=== PATIENT | female | born 1980 | race Caucasian/White ===

== ENCOUNTER → 2018-02-25 | Outpatient (CLI) | payer MEDICARE | LOC: RADMAMWWP 13:52 | PROVIDERS: ATTEND Family Medicine | DX: Z53.9 Procedure and treatment not carried out, unspecified reason (principal) ==

== ENCOUNTER 2018-10-18 15:03 | Inpatient (IN) | payer MEDICARE, MEDICAID ==
[2018-10-18] MEDS ORDERED: IBUPROFEN 600 MG TAB PO STA (15:37)
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
[2018-10-18] MEDS ORDERED: ZIPRASIDONE 20 MG VIAL IM STA (16:11)
[2018-10-18] MEDS ORDERED: LORazepam 2 MG/ML INJ IM STA (16:11)
[2018-10-18] MEDS ORDERED: MAGNESIUM HYDROXIDE 2,400 MG/10 ML CUP PO PRN (17:05)
[2018-10-19] MEDS: LORazepam 1 MG TAB PO PRN (06:33)
[2018-10-19 08:39] LABS: Basophils # (A) 0.1 k/uL (0-0.2); Basophils % (A) 0 %; Eosinophils # (A) 0.4 k/uL (0-0.7); Eosinophils % (A) 3 %; HCT 40.2 % (34.0-46.0); HGB 13.5 gm/dL (11.4-16.0); Lymphocytes # (A) 2.9 k/uL (1.0-4.8); Lymphocytes % (A) 20 %; MCH 32.9 pg (25.0-35.0); MCHC 33.7 g/dL (31.0-37.0); MCV 97.6 fL (80.0-100.0); Mean Platelet Volume 7.9; Monocytes # (A) 0.7 k/uL (0-1.0); Monocytes % (A) 5 %; Neutrophils # (A) 10.2 k/uL (1.3-7.7); Neutrophils % (A) 71 %; Platelet Count 372 k/uL (150-450); RBC 4.12 m/uL (3.80-5.40); RDW 14.5 % (11.5-15.5); WBC 14.5 k/uL (3.8-10.6)
[2018-10-19 08:47] LABS: ALT 9 U/L (9-52); AST 22 U/L (14-36); African American GFR (CKD) >90 (>60 ml/min/1.73 sqM); Albumin 3.7 g/dL (3.5-5.0); Alkaline Phosphatase 60 U/L (38-126); Anion Gap 8 mmol/L; Blood Urea Nitrogen 11 mg/dL (7-17); Calcium 9.2 mg/dL (8.4-10.2); Carbon Dioxide 20 mmol/L (22-30); Chloride 113 mmol/L (98-107); Cholesterol 292 mg/dL (<200); Glucose 92 mg/dL (74-99); HDL Cholesterol 33 mg/dL (40-60); LDL Cholesterol,Calculated 224 mg/dL (0-99); Potassium 3.6 mmol/L (3.5-5.1); Sodium 141 mmol/L (137-145); Total Bilirubin 0.5 mg/dL (0.2-1.3); Total Protein 6.5 g/dL (6.3-8.2); Triglycerides 175 mg/dL (<150)
[2018-10-19] MEDS: NICOTINE 14MG/24HR PATCH TRANSDERM SCH (11:05)
[2018-10-19] MEDS ORDERED: LORazepam 2 MG/ML INJ IM STA (14:07)
[2018-10-19] MEDS ORDERED: LORazepam 2 MG/ML INJ ONE (14:09)
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
[2018-10-19] MEDS: ZIPRASIDONE 20 MG VIAL IM PRN (14:35)
[2018-10-19] MEDS: TOPIRAMATE 100 MG TAB PO SCH ×2 (22:03→23:36)
[2018-10-20] MEDS: NICOTINE 14MG/24HR PATCH TRANSDERM SCH (09:54)
[2018-10-20] MEDS: TOPIRAMATE 100 MG TAB PO SCH ×2 (09:54→21:43)
[2018-10-20] MEDS: LORATADINE 10 MG TAB PO SCH (09:54)
[2018-10-20] MEDS: FAMOTIDINE 20 MG TAB PO SCH (09:54)
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
[2018-10-20 13:08] LABS: Hemoglobin A1C 5.1 % (4.0-6.0)
[2018-10-20] MEDS ORDERED: ZIPRASIDONE 20 MG VIAL IM ONE ×2 (13:26→13:31)
[2018-10-20] MEDS: ZIPRASIDONE 20 MG VIAL IM PRN (13:31)
[2018-10-20] MEDS: LORazepam 2 MG/ML INJ IM PRN (13:35)
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
[2018-10-21] MEDS: TOPIRAMATE 100 MG TAB PO SCH ×2 (09:48→20:08)
[2018-10-21] MEDS: LORATADINE 10 MG TAB PO SCH (09:48)
[2018-10-21] MEDS: FAMOTIDINE 20 MG TAB PO SCH (09:48)
[2018-10-21] MEDS: NICOTINE 14MG/24HR PATCH TRANSDERM SCH (09:48)
[2018-10-21 12:09] LABS: Serum Amphetamine Negative; Serum Barbiturates Negative; Serum Benzodiazepine Negative; Serum Cocaine Negative; Serum Methadone Negative; Serum Opiates Negative; Serum Phencyclidine Negative; Serum Propoxyphene Negative; Serum THC (Cannabis) Positive
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
[2018-10-21] MEDS: MAG HYDROX/AL HYDROX/SIMETH 30 ML CUP PO PRN (16:29)
[2018-10-21] MEDS: PREGABALIN 75 MG CAP PO SCH (20:07)
[2018-10-21] MEDS: ONDANSETRON ODT 4 MG TAB PO PRN (20:08)
[2018-10-21] MEDS: LORazepam 1 MG TAB PO PRN (20:10)
[2018-10-22] MEDS ORDERED: SCOPOLAMINE 1.5MG/72HR PATCH TRANSDERM SCH (00:45)
[2018-10-22] MEDS ORDERED: ONDANSETRON 4 MG/2 ML VIAL IM PRN (01:51)
[2018-10-22] MEDS: SODIUM CHLORIDE 0.45% 1,000 ML IV SCH ×2 (02:15→12:04)
--- NOTE | 2018-10-22 02:53 | CT ---
EXAM: CT Abdomen and Pelvis Without Intravenous Contrast CLINICAL HISTORY: ITS.REASON CT Reason: ABD pain TECHNIQUE: Axial computed tomography images of the abdomen and pelvis without intravenous contrast. CTDI is 10 mGy and DLP is 352 mGy-cm. This CT exam was performed using one or more of the following dose reduction techniques: automated exposure control, adjustment of the mA and/or kV according to patient size, and/or use of iterative reconstruction technique. COMPARISON: 08/17/2010 CT abdomen FINDINGS: Lung bases: No mass. No consolidation. ABDOMEN: Liver: Unremarkable. Gallbladder and bile ducts: Unremarkable. Pancreas: No ductal dilation. Spleen: Unremarkable. Adrenals: Unremarkable. Kidneys and ureters: No obstructing stones. No hydronephrosis. Stomach and bowel: No bowel obstruction. No bowel wall thickening. PELVIS: Appendix: No appendicitis. Bladder: No stones. Reproductive: Prominent left ovary measuring approximately 4.5 cm. Right ovary measures 2.6 cm.. ABDOMEN and PELVIS: Intraperitoneal space: Unremarkable. Bones/joints: No acute fractures. Soft tissues: Unremarkable. Vasculature: No abdominal aortic aneurysm. Lymph nodes: No enlarged lymph nodes. IMPRESSION: No acute intra-abdominal process. Prominent left ovary measuring up to 4.5 cm, if there is pain in the pelvis, correlate with ultrasound.
[2018-10-22] MEDS ORDERED: ONDANSETRON 4 MG/2 ML VIAL IVP PRN (03:03)
[2018-10-22 03:18] LABS: Basophils # (A) 0.1 k/uL (0-0.2); Basophils % (A) 1 %; Eosinophils # (A) 0.1 k/uL (0-0.7); Eosinophils % (A) 1 %; HCT 46.3 % (34.0-46.0); HGB 15.7 gm/dL (11.4-16.0); Lymphocytes # (A) 4.1 k/uL (1.0-4.8); Lymphocytes % (A) 34 %; MCH 32.9 pg (25.0-35.0); MCV 96.9 fL (80.0-100.0); Mean Platelet Volume 7.6; Monocytes # (A) 0.8 k/uL (0-1.0); Monocytes % (A) 6 %; Neutrophils # (A) 6.8 k/uL (1.3-7.7); Neutrophils % (A) 55 %; Platelet Count 402 k/uL (150-450); RBC 4.78 m/uL (3.80-5.40); RDW 14.9 % (11.5-15.5); WBC 12.3 k/uL (3.8-10.6)
[2018-10-22 03:25] LABS: ALT 16 U/L (9-52); AST 30 U/L (14-36); African American GFR (CKD) >90 (>60 ml/min/1.73 sqM); Albumin 4.9 g/dL (3.5-5.0); Alkaline Phosphatase 86 U/L (38-126); Amylase 48 U/L (30-110); Anion Gap 17 mmol/L; Blood Urea Nitrogen 14 mg/dL (7-17); Carbon Dioxide 22 mmol/L (22-30); Chloride 101 mmol/L (98-107); Glucose 116 mg/dL (74-99); Potassium 3.2 mmol/L (3.5-5.1); Sodium 140 mmol/L (137-145); Total Bilirubin 0.5 mg/dL (0.2-1.3); Total Protein 8.1 g/dL (6.3-8.2)
[2018-10-22] MEDS ORDERED: POTASSIUM CHLORIDE ER 20 MEQ TAB.ER PO STA (08:00)
[2018-10-22] MEDS: TOPIRAMATE 100 MG TAB PO SCH ×2 (08:11→21:06)
[2018-10-22] MEDS: NICOTINE 14MG/24HR PATCH TRANSDERM SCH (08:11)
[2018-10-22] MEDS: PREGABALIN 75 MG CAP PO SCH (08:11)
[2018-10-22] MEDS: FAMOTIDINE 20 MG TAB PO SCH ×2 (08:11→21:06)
[2018-10-22] MEDS: LORATADINE 10 MG TAB PO SCH (08:11)
[2018-10-22] MEDS: DULoxetine HCL 30 MG CAPSULE.DR PO SCH (09:52)
[2018-10-22] MEDS: ONDANSETRON ODT 4 MG TAB PO PRN (10:06)
[2018-10-22] MEDS ORDERED: Potassium Replacement Protocol 1 EACH MISC MISCELLANE PRN (12:04)
--- NOTE | 2018-10-22 12:12 | P.CONS ---
History of Present Illness - Reason for Consult Consult date: 10/22/18 Nausea vomiting Requesting physician: Henrik Ortiz - Chief Complaint Nausea vomiting epigastric abdominal pain - History of Present Illness 38-year-old female admitted with psychosis combative behavior not taking her psychiatric medications. Consult requested for nausea vomiting. CT abdomen and pelvis unremarkable. Patient's nausea vomiting has improved through the night. Per nursing no reports of hematemesis hematochezia or melena. White count on admission 14.5 presently 12.3. Hemoglobin 15.7. LFTs within normal limits. BUN 14. Creatinine 0.7. Lipase 27. Reports improvement in her epigastric discomfort. Tolerating clear liquids this morning. No history of gastric surgeries or peptic ulcer disease. Review of Systems Constitutional: Denies fever, chills, sweats, weight gain, or loss. HEENT: Negative for migraines, blurred vision or loss, earaches, drainage, tinnitus, oral mucosal lesions, dysphagia, or odynophagia. CARDIAC: Negative for chest pain, arrhythmias, or palpitation. RESPIRATORY: Negative for shortness of breath, hemoptysis, cough, or sputum production. GI: See HPI for pertinent findings. : Negative for hematuria, urgency, frequency, polyuria, or dysuria. GYNc: Denies possibility of . Negative vaginal discharge. MUSCULOSKELETAL: Negative for muscle aches, swelling, arthritis, and a rthralgias. NEUROLOGIC: Negative for stroke or TIA. ENDOCRINE: Negative for thyroid problems. SKIN: Negative for rash or itching. Past Medical History Past Medical History: Fibromyalgia, Musculoskeletal Disorder Additional Past Medical History / Comment(s): breast cancer History of Any Multi-Drug Resistant Organisms: None Reported Past Surgical History: Breast Surgery Additional Past Surgical History / Comment(s): bilateral mastectomy Past Psychological History: Anxiety, Bipolar, Depression Smoking Status: Current every day smoker Past Alcohol Use History: Occasional Past Drug Use History: Marijuana Medications and Allergies Home Medications Medication Instructions Recorded Confirmed Type DULoxetine HCL [Cymbalta] 120 mg PO DAILY 10/18/18 10/18/18 History Fluticasone/Vilanterol [Breo 1 puff PO DAILY 10/18/18 10/18/18 History Ellipta 100-25 Mcg Inhaler] Ibuprofen [Motrin] 600 mg PO TID PRN 10/18/18 10/18/18 History Loratadine 10 mg PO DAILY 10/18/18 10/18/18 History Pregabalin [Lyrica] 150 mg PO TID 10/18/18 10/18/18 History Ranitidine HCl [Zantac] 150 mg PO BID 10/18/18 10/18/18 History Topiramate [Topamax] 100 mg PO BID 10/18/18 10/18/18 History hydrOXYzine HCL 25 - 50 mg PO HS PRN 10/18/18 10/18/18 History Allergies Allergy/AdvReac Type Severity Reaction Status Date / Time No Known Allergies Allergy Verified 10/18/18 17:05 Physical Exam Vitals: Vital Signs Pulse Resp BP 10/21/18 21:24 138/80 10/21/18 20:12 98 20 177/112 General appearance: The patient is alert, oriented, in no acute distress. HET: Head is normocephalic and atraumatic. Pupils are equal and reactive. Oropharynx is clear without lesions. Neck: Supple without lymphadenopathy. Trachea midline. Heart: S1 S2. Regular rate and rhythm. Lungs: No crackles or wheezes are heard. Abdomen: Soft, minimal tenderness to the midepigastrium, nondistended with bowel sounds. No peritoneal signs. No palpable organomegaly or masses. Extremities: Normal skin color and turgor. No cyanosis, rash, ulceration, clubbing, or edema. Radial and pedal pulses are 2/4 bilaterally. Neurological: No focal deficits. Strength and sensation are grossly intact. Results CBC & Chem 7: 10/22/18 03:00 10/22/18 03:00 Labs: Abnormal Lab Results - Last 24 Hours (Table) 10/22/18 10/22/18 Range/Units 03:00 03:00 WBC 12.3 H (3.8-10.6) k/uL Hct 46.3 H (34.0-46.0) % Potassium 3.2 L (3.5-5.1) mmol/L Glucose 116 H (74-99) mg/dL CT scan - abdomen: report reviewed (Dr. Wong) Assessment and Plan (1) Intractable nausea and vomiting Narrative/Plan: 38-year-old female admitted with psychosis aggressive combative behavior not taking her psych medications with interval development of intractable nausea vomiting epigastric pain with clinical improvement. CT abdomen and pelvis reported no acute abnormalities. LFTs amylase lipase within normal limits. Most likely nausea vomiting could be related to medication withdrawal as well as epigastric pain was due to multiple episodes of retching. Current Visit: Yes Status: Acute Code(s): R11.2 - NAUSEA WITH VOMITING, UNSPECIFIED SNOMED Code(s): 507954802 (2) Epigastric abdominal pain Current Visit: Yes Status: Acute Code(s): R10.13 - EPIGASTRIC PAIN SNOMED Code(s): 07442116 Plan: 1. Overall her GI symptoms are improving. Slow advancement diet as tolerated. Continue with antinausea medications, Pepcid. Patient is now able to take her oral medications. No further workup from a GI standpoint. We'll be available for questions or concerns. Thank you for this kind referral and the opportunity to participate in the care of your patient. This consultation was discussed with Dr. Wong. The impression and plan of care have been directed as dictated.
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
--- NOTE | 2018-10-22 13:33 | P.GSCN ---
<Tamela Jean Baptiste A - Last Filed: 10/22/18 13:34> History of Present Illness Consult date: 10/22/18 Reason for Consult: LLQ abdominal pain Requesting physician: Henrik Ortiz History of present illness: CHIEF COMPLAINT: left lower quadrant abdominal pain HISTORY OF PRESENT ILLNESS: 38 year old female currently admitted to the mental health unit. General surgery was consulted for further evaluation of left lower quadrant abdominal pain. Patient also reports having episodes of nausea and vomiting yesterday which have since resolved. Patient reports pain is near left mid abdomen and radiates to her back. She denies diarrhea or constipation. Reports bowel movement today. Tolerating diet. Patient reports her menstrual cycle ended the Saturday before being admitted to the hospital. PAST MEDICAL HISTORY: See list. PAST SURGICAL HISTORY: See list. MEDICATIONS: See list. ALLERGIES: See list. SOCIAL HISTORY: Nicotine dependence. Marijuana use. REVIEW OF SYSTEMS: CONSTITUTIONAL: Denies fever or chills. HEENT: Denies blurred vision, vision changes, or eye pain. Denies hemoptysis ENDOCRINE: Denies heat or cold intolerance. CARDIOVASCULAR: Denies chest pain or pressure. RESPIRATORY: No shortness of breath. GASTROINTESTINAL: see HPI for permanent findings. NEURO: Denies history of seizures. PSYCH: history of anxiety, depression, bipolar disorder HEMATOLOGIC: Denies bleeding disorders. LYMPHATIC: The patient denies any lumps and bumps around the neck. GENITOURINARY: Denies any blood in urine or increased urinary frequency. MUSCULOSKELETAL: Denies myalgias. Denies joint swelling. Denies decreased range of motion beyond patients baseline. SKIN: Denies pruitis. Denies rash. reports multiple bruises. PHYSICAL EXAM: VITAL SIGNS: Currently stable. GENERAL: Well-developed in no acute distress. HEENT: No sclera icterus. Extraocular movements grossly intact. Moist buccal mucosa. Head is atraumatic, normocephalic. Hears conversational speech. No nasal drainage. NECK: Supple without lymphadenopathy. CHEST: Non-labored respirations and equal bilateral excursions. CARDIOVASCULAR: Regular rate with regular rhythm. Palpable 2+ radial pulses. ABDOMEN: Soft. Nondistended.Tenderness upon palpation of mid left lower quadrant. MUSCULOSKELETAL: No clubbing, cyanosis or edema. NEUROLOGIC: No focal or lateralizing signs. Cranial nerves II through XII grossly intact. PSYCH: Appropriate affect. Alert and oriented to person, place and time. SKIN: Well perfused. Good skin turgor. Multiple bruises to bilateral upper extremities LABORATORY DATA: Most recent laboratory data reveals white count 12.3. Hemoglobin 15.2. Sodium 140. Potassium 3.2. BUN 14. Creatinine 0.57. Glucose 116. Calcium 10. Total bilirubin 0.5. AST 30. ALT 16. IMAGING: CT abdomen and pelvis: No acute intra-abdominal process. Prominent left ovary measuring up to 4.5 cm. ASSESSMENT: 1. Abdominal pain, likely left ovarian cyst PLAN: Diet as tolerated. Motrin 600mg TID PRN for pain. Dr. Jordan recommends OB consult. No surgical intervention recommended at this time. Nurse practitioner note has been reviewed by physician. Signing provider agrees with the documented findings, assessment, and plan of care. Past Medical History Past Medical History: Fibromyalgia, Musculoskeletal Disorder Additional Past Medical History / Comment(s): breast cancer History of Any Multi-Drug Resistant Organisms: None Reported Past Surgical History: Breast Surgery Additional Past Surgical History / Comment(s): bilateral mastectomy Past Psychological History: Anxiety, Bipolar, Depression Smoking Status: Current every day smoker Past Alcohol Use History: Occasional Past Drug Use History: Marijuana Medications and Allergies Home Medications Medication Instructions Recorded Confirmed Type DULoxetine HCL [Cymbalta] 120 mg PO DAILY 10/18/18 10/18/18 History Fluticasone/Vilanterol [Breo 1 puff PO DAILY 10/18/18 10/18/18 History Ellipta 100-25 Mcg Inhaler] Ibuprofen [Motrin] 600 mg PO TID PRN 10/18/18 10/18/18 History Loratadine 10 mg PO DAILY 10/18/18 10/18/18 History Pregabalin [Lyrica] 150 mg PO TID 10/18/18 10/18/18 History Ranitidine HCl [Zantac] 150 mg PO BID 10/18/18 10/18/18 History Topiramate [Topamax] 100 mg PO BID 10/18/18 10/18/18 History hydrOXYzine HCL 25 - 50 mg PO HS PRN 10/18/18 10/18/18 History Allergies Allergy/AdvReac Type Severity Reaction Status Date / Time No Known Allergies Allergy Verified 10/18/18 17:05 Surgical - Exam Vital Signs Temp Pulse Resp BP Pulse Ox 98.3 F 86 20 128/87 96 10/18/18 15:06 10/18/18 15:06 10/18/18 15:06 10/18/18 15:06 10/18/18 15:06 Results - Labs 10/22/18 03:00 10/22/18 03:00 Abnormal Lab Results - Last 24 Hours (Table) 10/22/18 10/22/18 Range/Units 03:00 03:00 WBC 12.3 H (3.8-10.6) k/uL Hct 46.3 H (34.0-46.0) % Potassium 3.2 L (3.5-5.1) mmol/L Glucose 116 H (74-99) mg/dL Diabetes panel 10/22/18 Range/Units 03:00 Sodium 140 (137-145) mmol/L Potassium 3.2 L (3.5-5.1) mmol/L Chloride 101 (98-107) mmol/L Carbon Dioxide 22 (22-30) mmol/L BUN 14 (7-17) mg/dL Creatinine 0.57 (0.52-1.04) mg/dL Glucose 116 H (74-99) mg/dL Calcium 10.0 (8.4-10.2) mg/dL AST 30 (14-36) U/L ALT 16 (9-52) U/L Alkaline Phosphatase 86 (38-126) U/L Total Protein 8.1 (6.3-8.2) g/dL Albumin 4.9 (3.5-5.0) g/dL Calcium panel 10/22/18 Range/Units 03:00 Calcium 10.0 (8.4-10.2) mg/dL Albumin 4.9 (3.5-5.0) g/dL Pituitary panel 10/22/18 Range/Units 03:00 Sodium 140 (137-145) mmol/L Potassium 3.2 L (3.5-5.1) mmol/L Chloride 101 (98-107) mmol/L Carbon Dioxide 22 (22-30) mmol/L BUN 14 (7-17) mg/dL Creatinine 0.57 (0.52-1.04) mg/dL Glucose 116 H (74-99) mg/dL Calcium 10.0 (8.4-10.2) mg/dL Adrenal panel 10/22/18 Range/Units 03:00 Sodium 140 (137-145) mmol/L Potassium 3.2 L (3.5-5.1) mmol/L Chloride 101 (98-107) mmol/L Carbon Dioxide 22 (22-30) mmol/L BUN 14 (7-17) mg/dL Creatinine 0.57 (0.52-1.04) mg/dL Glucose 116 H (74-99) mg/dL Calcium 10.0 (8.4-10.2) mg/dL Total Bilirubin 0.5 (0.2-1.3) mg/dL AST 30 (14-36) U/L ALT 16 (9-52) U/L Alkaline Phosphatase 86 (38-126) U/L Total Protein 8.1 (6.3-8.2) g/dL Albumin 4.9 (3.5-5.0) g/dL Assessment and Plan (1) Abdominal pain Current Visit: Yes Status: Acute Code(s): R10.9 - UNSPECIFIED ABDOMINAL PAIN SNOMED Code(s): 43624239 <Kristin Jordan N - Last Filed: 10/22/18 19:49> History of Present Illness History of present illness: I personally reviewed her CT of the abdomen and pelvis including clinical exam consistent with low left lower pelvic pain with separate left flank pain. Computed tomography scan consistent with large right ovary which has risk for ovarian torsion. Recommend consultation to gynecology for further assessment. No acute surgical intervention advised. May take stool softeners as needed for occasional constipation. Surgical - Exam Vital Signs Temp Pulse Resp BP Pulse Ox 98.3 F 86 20 128/87 96 10/18/18 15:06 10/18/18 15:06 10/18/18 15:06 10/18/18 15:06 10/18/18 15:06 Results - Labs 10/22/18 03:00 10/22/18 11:32 Abnormal Lab Results - Last 24 Hours (Table) 10/22/18 10/22/18 10/22/18 Range/Units 03:00 03:00 11:32 WBC 12.3 H (3.8-10.6) k/uL Hct 46.3 H (34.0-46.0) % Potassium 3.2 L (3.5-5.1) mmol/L Carbon Dioxide 16 L (22-30) mmol/L Glucose 116 H 111 H (74-99) mg/dL Calcium 10.7 H (8.4-10.2) mg/dL Diabetes panel 10/22/18 10/22/18 Range/Units 03:00 11:32 Sodium 140 144 (137-145) mmol/L Potassium 3.2 L 4.3 (3.5-5.1) mmol/L Chloride 101 107 (98-107) mmol/L Carbon Dioxide 22 16 L (22-30) mmol/L BUN 14 15 (7-17) mg/dL Creatinine 0.57 0.58 (0.52-1.04) mg/dL Glucose 116 H 111 H (74-99) mg/dL Calcium 10.0 10.7 H (8.4-10.2) mg/dL AST 30 (14-36) U/L ALT 16 (9-52) U/L Alkaline Phosphatase 86 (38-126) U/L Total Protein 8.1 (6.3-8.2) g/dL Albumin 4.9 (3.5-5.0) g/dL Calcium panel 10/22/18 10/22/18 Range/Units 03:00 11:32 Calcium 10.0 10.7 H (8.4-10.2) mg/dL Albumin 4.9 (3.5-5.0) g/dL Pituitary panel 10/22/18 10/22/18 Range/Units 03:00 11:32 Sodium 140 144 (137-145) mmol/L Potassium 3.2 L 4.3 (3.5-5.1) mmol/L Chloride 101 107 (98-107) mmol/L Carbon Dioxide 22 16 L (22-30) mmol/L BUN 14 15 (7-17) mg/dL Creatinine 0.57 0.58 (0.52-1.04) mg/dL Glucose 116 H 111 H (74-99) mg/dL Calcium 10.0 10.7 H (8.4-10.2) mg/dL Adrenal panel 10/22/18 10/22/18 Range/Units 03:00 11:32 Sodium 140 144 (137-145) mmol/L Potassium 3.2 L 4.3 (3.5-5.1) mmol/L Chloride 101 107 (98-107) mmol/L Carbon Dioxide 22 16 L (22-30) mmol/L BUN 14 15 (7-17) mg/dL Creatinine 0.57 0.58 (0.52-1.04) mg/dL Glucose 116 H 111 H (74-99) mg/dL Calcium 10.0 10.7 H (8.4-10.2) mg/dL Total Bilirubin 0.5 (0.2-1.3) mg/dL AST 30 (14-36) U/L ALT 16 (9-52) U/L Alkaline Phosphatase 86 (38-126) U/L Total Protein 8.1 (6.3-8.2) g/dL Albumin 4.9 (3.5-5.0) g/dL
[2018-10-22 13:59] LABS: African American GFR (CKD) >90 (>60 ml/min/1.73 sqM); Anion Gap 21 mmol/L; Blood Urea Nitrogen 15 mg/dL (7-17); Calcium 10.7 mg/dL (8.4-10.2); Carbon Dioxide 16 mmol/L (22-30); Chloride 107 mmol/L (98-107); Glucose 111 mg/dL (74-99); Sodium 144 mmol/L (137-145)
[2018-10-22 14:04] LABS: Potassium 4.3 mmol/L (3.5-5.1)
[2018-10-22] MEDS: IBUPROFEN 600 MG TAB PO PRN ×2 (14:17→21:08)
[2018-10-22] MEDS: LORazepam 1 MG TAB PO PRN (17:32)
[2018-10-22] MEDS: PREGABALIN 100 MG CAP PO SCH (17:32)
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
[2018-10-23] MEDS: LORazepam 1 MG TAB PO PRN ×3 (00:08→21:42)
[2018-10-23] MEDS: IBUPROFEN 600 MG TAB PO PRN ×3 (07:50→21:42)
[2018-10-23] MEDS: ONDANSETRON ODT 4 MG TAB PO PRN (07:51)
[2018-10-23 08:06] LABS: Ionized Calcium 5.5 mg/dL (4.5-5.3)
[2018-10-23 08:17] LABS: African American GFR (CKD) >90 (>60 ml/min/1.73 sqM); Anion Gap 10 mmol/L; Blood Urea Nitrogen 12 mg/dL (7-17); Calcium 9.8 mg/dL (8.4-10.2); Carbon Dioxide 25 mmol/L (22-30); Chloride 105 mmol/L (98-107); Glucose 100 mg/dL (74-99); Potassium 3.5 mmol/L (3.5-5.1); Sodium 140 mmol/L (137-145)
[2018-10-23 08:42] LABS: Basophils # (A) 0.1 k/uL (0-0.2); Basophils % (A) 1 %; Eosinophils # (A) 0.2 k/uL (0-0.7); Eosinophils % (A) 2 %; HCT 43.5 % (34.0-46.0); HGB 14.1 gm/dL (11.4-16.0); Lymphocytes # (A) 3.5 k/uL (1.0-4.8); Lymphocytes % (A) 39 %; MCH 32.6 pg (25.0-35.0); MCHC 32.5 g/dL (31.0-37.0); MCV 100.4 fL (80.0-100.0); Mean Platelet Volume 7.6; Monocytes # (A) 0.7 k/uL (0-1.0); Monocytes % (A) 8 %; Neutrophils # (A) 4.2 k/uL (1.3-7.7); Neutrophils % (A) 47 %; Platelet Count 343 k/uL (150-450); RBC 4.33 m/uL (3.80-5.40); RDW 13.3 % (11.5-15.5)
[2018-10-23] MEDS: FAMOTIDINE 20 MG TAB PO SCH ×2 (09:01→21:40)
[2018-10-23] MEDS: NICOTINE 14MG/24HR PATCH TRANSDERM SCH (09:01)
[2018-10-23] MEDS: LORATADINE 10 MG TAB PO SCH (09:02)
[2018-10-23] MEDS: TOPIRAMATE 100 MG TAB PO SCH ×2 (09:02→21:40)
[2018-10-23] MEDS: DULoxetine HCL 30 MG CAPSULE.DR PO SCH (09:02)
[2018-10-23] MEDS: PREGABALIN 100 MG CAP PO SCH ×2 (09:02→15:58)
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
--- NOTE | 2018-10-23 12:47 | P.PN ---
Progress Note - Text Progress Note Date: 10/23/18 Interval History: Patient is a 38-year-old female who was seen today she again requested that his stepmother member be present came to the interview room. Patient reported that we placed her in withdrawal and that her Lyrica is still not at the dose she was taking as an outpatient. Patient stated that she has not been throwing up and not been feeling nauseated and has been able to keep her food down. Patient refused to answer any other questions stating that she didn't want to speak with me. Mental Status: Patient is dressed in a hospital gown, makes intermittent eye contact and is asked to be seen with another staff member present during the interview. Patient's speech is spontaneous, normal volume and rhythm and she is superficially cooperative. Patient is goal-directed however her responses are brief and non-elaborative and she refused to answer any other questions other than what medications she was taking, whether she had been able to keep her food down and how she was feeling. Patient denied any suicidal or homicidal ideation, refused to answer questions regarding whether or not she still thought people and been poisoning her dogs and stated that she didn't want to speak with me and abruptly ended the interview. Patient remained sarcastic, giving little information and refusing to answer most questions. Assessment: Patient remains irritable, with a labile mood at times appearing angry and guarded at other times it interacting with other peers, smiling and la ughing. Patient has been able to keep her food down in her diet will continue to be advanced as tolerated. Patient is no longer reporting any nausea and vomiting and I suspect her nausea and vomiting was secondary to the discontinuation symptoms from Cymbalta. Patient is restarted on Lyrica and now the dose of 100 mg 3 times a day and states that she was taking 150. Patient again refused to speak with me without a staff member present and refused to answer most questions and abruptly ended in her Plan: Patient will continue on Cymbalta 30 mg, will discontinue her scopolamine patch after 72 hours and continue to advance her diet as tolerated. Patient refuses to discuss any other medications with me and refuses to participate in any evaluation. Patient continues on her other medications for medical problems.
[2018-10-23] MEDS: PREGABALIN 75 MG CAP PO SCH ×2 (21:40→22:02)
[2018-10-24] MEDS: LORazepam 1 MG TAB PO PRN ×3 (05:41→19:14)
[2018-10-24] MEDS: ONDANSETRON ODT 4 MG TAB PO PRN (05:45)
[2018-10-24] MEDS: IBUPROFEN 600 MG TAB PO PRN ×3 (05:45→17:19)
[2018-10-24] MEDS: TOPIRAMATE 100 MG TAB PO SCH ×2 (08:55→19:53)
[2018-10-24] MEDS: PREGABALIN 75 MG CAP PO SCH ×3 (08:55→21:39)
[2018-10-24] MEDS: NICOTINE 14MG/24HR PATCH TRANSDERM SCH (08:55)
[2018-10-24] MEDS: LORATADINE 10 MG TAB PO SCH (08:55)
[2018-10-24] MEDS: DULoxetine HCL 30 MG CAPSULE.DR PO SCH (08:55)
[2018-10-24] MEDS: FAMOTIDINE 20 MG TAB PO SCH ×2 (08:55→19:53)
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
[2018-10-24] MEDS: hydrOXYzine PAMOATE 25 MG CAP PO PRN ×2 (14:52→21:41)
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
[2018-10-24] MEDS: ARIPiprazole 2 MG TAB PO SCH (19:52)
[2018-10-24] MEDS: MELATONIN 1 MG TAB PO SCH (19:53)
[2018-10-24] MEDS: ACETAMINOPHEN TAB 325 MG TAB PO PRN (21:41)
[2018-10-25] MEDS: IBUPROFEN 600 MG TAB PO PRN ×4 (00:03→23:05)
[2018-10-25] MEDS: LORazepam 1 MG TAB PO PRN ×4 (02:16→22:49)
[2018-10-25] MEDS: FAMOTIDINE 20 MG TAB PO SCH ×2 (07:42→21:26)
[2018-10-25] MEDS: NICOTINE 14MG/24HR PATCH TRANSDERM SCH (07:42)
[2018-10-25] MEDS: TOPIRAMATE 100 MG TAB PO SCH ×2 (07:42→21:26)
[2018-10-25] MEDS: PREGABALIN 75 MG CAP PO SCH ×3 (07:43→21:26)
[2018-10-25] MEDS: LORATADINE 10 MG TAB PO SCH (07:43)
[2018-10-25] MEDS: DULoxetine HCL 30 MG CAPSULE.DR PO SCH (07:43)
--- NOTE | 2018-10-25 12:07 | P.PN ---
Progress Note - Text Progress Note Date: 10/25/18 Interval history: Patient is seen in cross coverage today. She describes dealing with a lot of pain issues today. She describes fibromyalgia pain. She makes reference to her Cymbalta dose being lower and it has given her benefit for fibromyalgia. She has been started on Abilify. She makes reference to feeling upset today. Mental status exam: She is alert and cooperative with coming to the interview room. She presents as somewhat irritable. She describes feeling upset and depressed. She has evidence of some persecutory thought content, makes reference to several agencies being in a clique together, makes reference to 'guess what's going to happen when I get out of here.' She denies any thoughts of harm to self, does not verbalize any direct thoughts of harm to others. She does not verbalize any hallucinations. Plan: Patient will be maintained on current psychotropic medication regimen. Continue to monitor for any medication side effects monitor her response to ongoing treatment. She is given encouragement regarding compliance with psychotropic medications. We'll continue to cover this patient through the weekend.
[2018-10-25] MEDS: hydrOXYzine PAMOATE 25 MG CAP PO PRN ×2 (15:33→21:28)
[2018-10-25] MEDS: ACETAMINOPHEN TAB 325 MG TAB PO PRN (15:34)
[2018-10-25] MEDS: MAG HYDROX/AL HYDROX/SIMETH 30 ML CUP PO PRN (17:49)
[2018-10-25] MEDS: MELATONIN 1 MG TAB PO SCH (21:26)
[2018-10-25] MEDS: ARIPiprazole 2 MG TAB PO SCH (21:26)
[2018-10-25] MEDS: ZIPRASIDONE 20 MG VIAL IM PRN (22:49)
[2018-10-26] MEDS: LORazepam 1 MG TAB PO PRN ×2 (06:45→14:29)
[2018-10-26] MEDS: PREGABALIN 75 MG CAP PO SCH ×3 (09:08→19:41)
[2018-10-26] MEDS: FAMOTIDINE 20 MG TAB PO SCH ×2 (09:08→22:09)
[2018-10-26] MEDS: NICOTINE 14MG/24HR PATCH TRANSDERM SCH (09:08)
[2018-10-26] MEDS: IBUPROFEN 600 MG TAB PO PRN ×2 (09:08→16:03)
[2018-10-26] MEDS: LORATADINE 10 MG TAB PO SCH (09:08)
[2018-10-26] MEDS: TOPIRAMATE 100 MG TAB PO SCH ×2 (09:08→19:41)
[2018-10-26] MEDS: hydrOXYzine PAMOATE 25 MG CAP PO PRN ×2 (09:08→18:26)
[2018-10-26] MEDS: DULoxetine HCL 30 MG CAPSULE.DR PO SCH (09:08)
[2018-10-26] MEDS: MAG HYDROX/AL HYDROX/SIMETH 30 ML CUP PO PRN (11:05)
[2018-10-26 13:23] LABS: Appearance,Urine Clear (Clear); Bacteria,Urine Rare /hpf; Bilirubin,Urine Negative (Negative); Blood,Urine Negative (Negative); Color,Urine Light Yellow; Glucose,Urine (UA) Negative (Negative); Ketones,Urine Negative (Negative); Leukocyte Esterase,Urine Moderate (Negative); Nitrite,Urine Negative (Negative); PH, Urine 7.5 (5.0-8.0); Protein,Urine Negative (Negative); RBC,Urine 1 /hpf (0-5); Specific Gravity,Urine 1.006 (1.001-1.035); Squamous Epithelial Cell,Urine 3 /hpf (0-4); Urobilinogen,Urine <2.0 mg/dL (<2.0); WBC,Urine 10 /hpf (0-5)
[2018-10-26] MEDS: ACETAMINOPHEN TAB 325 MG TAB PO PRN ×2 (14:14→19:42)
--- NOTE | 2018-10-26 15:58 | P.PN ---
Progress Note - Text Progress Note Date: 10/26/18 Interval history: Patient is seen again in cross coverage today. She was found in her room lying on the floor in the corner. She made reference to feeling scared. She is seen with female staff present. She makes reference to feeling cloudy in her head. She also relays that her blood pressure is been high, she has had some high blood pressure readings since at least 10/23. She wonders about the Abilify in terms of side effects. Abilify it looks was started on the . She has been on Abilify in the past. She states that yesterday she was very emotional and crying throughout the day. Mental status exam: She is alert and cooperative with the interview. She has a more childlike presentation today at times. She describes her mood as tired. She does not verbalize any thoughts of harm to self or others. She does not verbalize any hallucinations. She does not display any significant agitation. Plan: Patient will be maintained on current psychotropic medications. Recheck her blood pressure. Continue to monitor for medication side effects. We discussed that side effects can get better after initially started medication. Continue to monitor her ongoing response to treatment.
[2018-10-26] MEDS: LISINOPRIL 10 MG TAB PO SCH (16:22)
[2018-10-26] MEDS ORDERED: hydrALAZINE HCL 10 MG TAB PO ONE (18:41)
[2018-10-26] MEDS: MELATONIN 1 MG TAB PO SCH (19:41)
[2018-10-26] MEDS: ARIPiprazole 2 MG TAB PO SCH (19:41)
[2018-10-26] MEDS: ZIPRASIDONE 20 MG VIAL IM PRN (19:50)
[2018-10-26] MEDS: LORazepam 2 MG/ML INJ IM PRN (19:50)
[2018-10-27] MEDS: LORazepam 1 MG TAB PO PRN ×4 (02:52→23:43)
[2018-10-27] MEDS: IBUPROFEN 600 MG TAB PO PRN ×4 (02:52→20:15)
[2018-10-27] MEDS: MAG HYDROX/AL HYDROX/SIMETH 30 ML CUP PO PRN (04:41)
[2018-10-27] MEDS: ACETAMINOPHEN TAB 325 MG TAB PO PRN ×3 (05:47→19:07)
[2018-10-27] MEDS: hydrOXYzine PAMOATE 25 MG CAP PO PRN ×3 (06:35→19:07)
[2018-10-27] MEDS: NICOTINE 14MG/24HR PATCH TRANSDERM SCH (08:39)
[2018-10-27] MEDS: FAMOTIDINE 20 MG TAB PO SCH ×2 (08:40→20:12)
[2018-10-27] MEDS: PREGABALIN 75 MG CAP PO SCH ×3 (08:40→20:13)
[2018-10-27] MEDS: DULoxetine HCL 30 MG CAPSULE.DR PO SCH (08:40)
[2018-10-27] MEDS: TOPIRAMATE 100 MG TAB PO SCH ×2 (08:40→20:12)
[2018-10-27] MEDS: LISINOPRIL 10 MG TAB PO SCH (08:40)
[2018-10-27] MEDS: LORATADINE 10 MG TAB PO SCH (08:40)
[2018-10-27 09:57] LABS: Urine Alcohol Negative (Negative); Urine Barbiturate Negative (Negative); Urine Cocaine Negative (Negative); Urine Methadone Negative (Negative); Urine Opiates Negative (Negative); Urine Phencyclidine Negative (Negative)
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
[2018-10-27] MEDS: MELATONIN 3 MG TABLET PO SCH (20:12)
[2018-10-27] MEDS: ARIPiprazole 5 MG TAB PO SCH (20:15)
[2018-10-28] MEDS: ZIPRASIDONE 20 MG VIAL IM PRN (03:00)
[2018-10-28] MEDS: DULoxetine HCL 30 MG CAPSULE.DR PO SCH (07:49)
[2018-10-28] MEDS: LISINOPRIL 10 MG TAB PO SCH (07:49)
[2018-10-28] MEDS: NICOTINE 14MG/24HR PATCH TRANSDERM SCH (07:49)
[2018-10-28] MEDS: TOPIRAMATE 100 MG TAB PO SCH ×2 (07:49→20:29)
[2018-10-28] MEDS: PREGABALIN 75 MG CAP PO SCH ×3 (07:49→20:29)
[2018-10-28] MEDS: LORATADINE 10 MG TAB PO SCH (07:49)
[2018-10-28] MEDS: FAMOTIDINE 20 MG TAB PO SCH ×2 (07:50→20:29)
[2018-10-28] MEDS: LORazepam 1 MG TAB PO PRN ×3 (07:52→23:22)
[2018-10-28] MEDS: IBUPROFEN 600 MG TAB PO PRN ×3 (07:52→23:22)
[2018-10-28] MEDS: ALBUTEROL INHALER 60 PUFF/8 GM INHALER INHALATION PRN (12:55)
[2018-10-28] MEDS: hydrOXYzine PAMOATE 25 MG CAP PO PRN ×2 (12:55→20:33)
[2018-10-28] MEDS: ACETAMINOPHEN TAB 325 MG TAB PO PRN (12:56)
--- NOTE | 2018-10-28 13:36 | P.PN ---
Progress Note - Text Progress Note Date: 10/28/18 Interval History: Patient is a 38-year-old female who was seen today and she complained about staff last night not doing their job, only checking on one room. Patient states she was moving around and hiding in the hallway and felt that he was staring her down. She states she went into another peers room to wake him up because she was scared and then hid behind the door. She states that she slept in the bathroom in her room so that was less easy for "them to get to me". Patient states that she is writing on the brown because no one will listen to her. Mental Status:Appearance/Attitude: Patient is dressed in a hospital gown, makes eye contact and was cooperative Behavior: Patient does not exhibit any psychomotor agitation or retardation. Speech/Language: Patient's speech is spontaneous of normal volume and rhythm and she is coherent Thought Process: Patient is goal-directed there is no evidence of loose association or flight of ideas Thought Content: Patient denies auditory or visual hallucinations but continues to express delusional ideation today stating that staff was staring her down, that she's had behind a door so staff wouldn't find her, that she slept in the bathroom so was less easy for people to get to her and she is writing on the brown in her room because no one is listening to her. Patient reports that she didn't sleep well last night. Suicidal/Homicidal Ideation: Patient denies any current suicidal or homicidal ideation Sensorium/Cognition: Patient is alert and oriented to person, place and time Mood/Affect: Patient's mood remains labile, affect appropriate to her mood Insight/Judgment: Patient's insight and judgment are fair Assessment: Patient states that she didn't feel that staff were doing their job last night, she states that she was up in the hallway and wasn't doing anything and doesn't understand where she was given an injection. Patient went to another peers room because she was afraid and hid behind the door in his room. Patient states that she had the bathroom so that it wasn't easy for anyone to get to her. Patient has been writing on the brown in her room because no one is listening to her. Patient did not allow me to increase her Abilify today. Patient did require an injection of Geodon last evening. Plan: Patient continue on Abilify 5 mg at bedtime and melatonin 3 mg at bedtime to start target her mood and psychotic symptoms. Patient continues to require hospitalization to target her mood and psychotic symptoms.
[2018-10-28] MEDS: MELATONIN 3 MG TABLET PO SCH (20:29)
[2018-10-28] MEDS: ARIPiprazole 5 MG TAB PO SCH (20:29)
[2018-10-29] MEDS: NICOTINE 14MG/24HR PATCH TRANSDERM SCH (07:46)
[2018-10-29] MEDS: PREGABALIN 75 MG CAP PO SCH ×3 (07:47→23:06)
[2018-10-29] MEDS: LORATADINE 10 MG TAB PO SCH (07:47)
[2018-10-29] MEDS: LISINOPRIL 10 MG TAB PO SCH (07:47)
[2018-10-29] MEDS: FAMOTIDINE 20 MG TAB PO SCH ×2 (07:47→23:06)
[2018-10-29] MEDS: DULoxetine HCL 30 MG CAPSULE.DR PO SCH (07:47)
[2018-10-29] MEDS: TOPIRAMATE 100 MG TAB PO SCH ×2 (07:47→23:06)
[2018-10-29] MEDS: IBUPROFEN 600 MG TAB PO PRN ×3 (07:50→23:08)
[2018-10-29] MEDS: ALBUTEROL INHALER 60 PUFF/8 GM INHALER INHALATION PRN (07:50)
[2018-10-29] MEDS: hydrOXYzine PAMOATE 25 MG CAP PO PRN ×3 (07:50→23:08)
[2018-10-29] MEDS: LORazepam 1 MG TAB PO PRN (10:16)
[2018-10-29] MEDS: ACETAMINOPHEN TAB 325 MG TAB PO PRN (10:16)
[2018-10-29] MEDS ORDERED: DOCUSATE 100 MG CAP PO PRN (10:40)
[2018-10-29] MEDS ORDERED: POLYETHYLENE GLYCOL 3350 17 GM POWD.PACK PO PRN (10:41)
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
[2018-10-29] MEDS ORDERED: ZIPRASIDONE 20 MG VIAL IM ONE (17:32)
[2018-10-29] MEDS: ZIPRASIDONE 20 MG VIAL IM PRN (17:52)
[2018-10-29] MEDS: LORazepam 2 MG/ML INJ IM PRN (17:52)
[2018-10-29] MEDS: MELATONIN 3 MG TABLET PO SCH (23:06)
[2018-10-29] MEDS: ARIPiprazole 5 MG TAB PO SCH (23:06)
[2018-10-30] MEDS: ACETAMINOPHEN TAB 325 MG TAB PO PRN ×3 (02:41→20:17)
[2018-10-30] MEDS: hydrOXYzine PAMOATE 25 MG CAP PO PRN ×3 (05:05→20:17)
[2018-10-30] MEDS: PREGABALIN 75 MG CAP PO SCH ×3 (07:44→20:16)
[2018-10-30] MEDS: DULoxetine HCL 30 MG CAPSULE.DR PO SCH (07:44)
[2018-10-30] MEDS: NICOTINE 14MG/24HR PATCH TRANSDERM SCH (07:44)
[2018-10-30] MEDS: FAMOTIDINE 20 MG TAB PO SCH ×2 (07:44→20:17)
[2018-10-30] MEDS: TOPIRAMATE 100 MG TAB PO SCH ×2 (07:44→20:16)
[2018-10-30] MEDS: LORATADINE 10 MG TAB PO SCH (07:44)
[2018-10-30] MEDS: LISINOPRIL 10 MG TAB PO SCH (07:44)
[2018-10-30] MEDS: IBUPROFEN 600 MG TAB PO PRN ×3 (07:46→22:42)
[2018-10-30] MEDS: ZIPRASIDONE 20 MG VIAL IM PRN (08:36)
[2018-10-30] MEDS: LORazepam 2 MG/ML INJ IM PRN (08:36)
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
[2018-10-30] MEDS: MELATONIN 3 MG TABLET PO SCH (20:16)
[2018-10-30] MEDS: ARIPiprazole 5 MG TAB PO SCH (20:17)
[2018-10-30] MEDS: ALBUTEROL INHALER 60 PUFF/8 GM INHALER INHALATION PRN (21:34)
[2018-10-31] MEDS: MAG HYDROX/AL HYDROX/SIMETH 30 ML CUP PO PRN ×2 (00:53→03:54)
[2018-10-31] MEDS ORDERED: LOPERAMIDE 2 MG CAP PO STA (06:25)
[2018-10-31] MEDS: DULoxetine HCL 30 MG CAPSULE.DR PO SCH (07:59)
[2018-10-31] MEDS: TOPIRAMATE 100 MG TAB PO SCH ×2 (07:59→20:12)
[2018-10-31] MEDS: PREGABALIN 75 MG CAP PO SCH ×3 (07:59→20:11)
[2018-10-31] MEDS: NICOTINE 14MG/24HR PATCH TRANSDERM SCH (07:59)
[2018-10-31] MEDS: LISINOPRIL 10 MG TAB PO SCH (07:59)
[2018-10-31] MEDS: LORATADINE 10 MG TAB PO SCH (07:59)
[2018-10-31] MEDS: FAMOTIDINE 20 MG TAB PO SCH ×2 (07:59→20:12)
[2018-10-31] MEDS: IBUPROFEN 600 MG TAB PO PRN ×2 (08:01→16:39)
[2018-10-31] MEDS: hydrOXYzine PAMOATE 25 MG CAP PO PRN ×3 (08:02→23:06)
[2018-10-31] MEDS: LORazepam 1 MG TAB PO PRN ×2 (11:34→20:11)
[2018-10-31] MEDS: ACETAMINOPHEN TAB 325 MG TAB PO PRN ×2 (13:38→18:51)
[2018-10-31] MEDS: ALBUTEROL INHALER 60 PUFF/8 GM INHALER INHALATION PRN (13:40)
--- NOTE | 2018-10-31 14:40 | P.PN ---
Progress Note - Text Progress Note Date: 10/31/18 Interval History: Patient is a 38-year-old female who was seen today she was lying in a corner in her room on the unit covered in blankets and towels refused to get up and come with me to the interview room kept her eyes closed and responded only a few questions. Patient earlier was seen singing and walking in the hallways. Mental Status: Appearance/Attitude: Patient is seen lying in her room, she is lying on tiles covered with blankets in a corner refuses to get up and come and speak with me keeps her eyes closed and refuses to respond to most questions Behavior: Patient does not exhibit any psychomotor retardation or agitation but earlier was seen singing and walking in the hallway Speech/Language: Patient does not respond to questions with more than a yes no answer Thought Process: Patient responds with yes no answers Thought Content: Patient is not responding to questions stating yes or no and only responding to questions regarding her medications Suicidal/Homicidal Ideation: Patient did not respond Sensorium/Cognition: Patient is alert and oriented to person, place and time Mood/Affect: Patient's mood is labile and her affect appropriate to her mood Insight/Judgment: Patient's insight and judgment are limited Assessment: Patient went to court today and is now on court ordered treatment patient stated she understands that we'll only discuss her medications with me and refused to answer any further questions. Patient has written all over the brown of her room, there are paper towels strewn around the room the patient is lying on the floor with a blanket over her. Patient has been seen in the unit walking up and down the flynn singing. Plan: Will increase the patient's Abilify to 15 mg at bedtime and she refuses to take oral medication she'll receive an injection of Geodon 20 mg IM. Patient continues to require hospitalization to target her paranoid delusions and mood.
[2018-10-31] MEDS: MELATONIN 3 MG TABLET PO SCH (20:12)
[2018-10-31] MEDS: ARIPiprazole 15 MG TAB PO SCH (20:12)
[2018-11-01] MEDS: IBUPROFEN 600 MG TAB PO PRN ×3 (03:37→21:06)
[2018-11-01] MEDS: hydrOXYzine PAMOATE 25 MG CAP PO PRN ×3 (03:40→20:14)
[2018-11-01] MEDS: ACETAMINOPHEN TAB 325 MG TAB PO PRN (06:30)
[2018-11-01] MEDS: LORazepam 1 MG TAB PO PRN ×3 (06:34→23:12)
[2018-11-01] MEDS: DULoxetine HCL 30 MG CAPSULE.DR PO SCH (08:40)
[2018-11-01] MEDS: LISINOPRIL 10 MG TAB PO SCH (08:40)
[2018-11-01] MEDS: NICOTINE 14MG/24HR PATCH TRANSDERM SCH (08:40)
[2018-11-01] MEDS: FAMOTIDINE 20 MG TAB PO SCH ×2 (08:40→21:06)
[2018-11-01] MEDS: PREGABALIN 75 MG CAP PO SCH ×3 (08:40→21:06)
[2018-11-01] MEDS: LORATADINE 10 MG TAB PO SCH (08:40)
[2018-11-01] MEDS: TOPIRAMATE 100 MG TAB PO SCH ×2 (08:42→21:06)
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
[2018-11-01] MEDS: MELATONIN 3 MG TABLET PO SCH (21:06)
[2018-11-01] MEDS: ARIPiprazole 15 MG TAB PO SCH (21:06)
[2018-11-02] MEDS: hydrOXYzine PAMOATE 25 MG CAP PO PRN ×3 (04:10→21:27)
[2018-11-02] MEDS: IBUPROFEN 600 MG TAB PO PRN ×3 (04:11→21:27)
[2018-11-02] MEDS: LORATADINE 10 MG TAB PO SCH (08:16)
[2018-11-02] MEDS: FAMOTIDINE 20 MG TAB PO SCH ×2 (08:16→21:26)
[2018-11-02] MEDS: PREGABALIN 75 MG CAP PO SCH ×4 (08:16→21:26)
[2018-11-02] MEDS: NICOTINE 14MG/24HR PATCH TRANSDERM SCH ×2 (08:16→08:22)
[2018-11-02] MEDS: LISINOPRIL 10 MG TAB PO SCH (08:16)
[2018-11-02] MEDS: TOPIRAMATE 100 MG TAB PO SCH ×2 (08:16→21:26)
[2018-11-02] MEDS: DULoxetine HCL 30 MG CAPSULE.DR PO SCH (08:16)
[2018-11-02] MEDS: LORazepam 1 MG TAB PO PRN (08:24)
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
[2018-11-02] MEDS: ALBUTEROL INHALER 60 PUFF/8 GM INHALER INHALATION PRN (15:51)
[2018-11-02] MEDS: ACETAMINOPHEN TAB 325 MG TAB PO PRN (15:54)
[2018-11-02] MEDS: LORazepam 0.5 MG TAB PO PRN (15:54)
[2018-11-02] MEDS: MELATONIN 3 MG TABLET PO SCH (21:26)
[2018-11-02] MEDS: ARIPiprazole 15 MG TAB PO SCH (21:26)
[2018-11-03] MEDS: DULoxetine HCL 30 MG CAPSULE.DR PO SCH (07:44)
[2018-11-03] MEDS: PREGABALIN 75 MG CAP PO SCH ×2 (07:44→07:58)
[2018-11-03] MEDS: LISINOPRIL 10 MG TAB PO SCH (07:44)
[2018-11-03] MEDS: LORATADINE 10 MG TAB PO SCH (07:44)
[2018-11-03] MEDS: FAMOTIDINE 20 MG TAB PO SCH ×2 (07:44→20:48)
[2018-11-03] MEDS: hydrOXYzine PAMOATE 25 MG CAP PO PRN ×2 (07:45→20:49)
[2018-11-03] MEDS: TOPIRAMATE 100 MG TAB PO SCH ×2 (07:45→20:48)
[2018-11-03] MEDS: IBUPROFEN 600 MG TAB PO PRN ×2 (07:45→17:45)
[2018-11-03] MEDS: NICOTINE 14MG/24HR PATCH TRANSDERM SCH (07:59)
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
[2018-11-03] MEDS: ZIPRASIDONE 20 MG VIAL IM PRN (15:14)
[2018-11-03] MEDS: LORazepam 2 MG/ML INJ IM PRN (15:15)
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
[2018-11-03] MEDS: PREGABALIN 100 MG CAP PO SCH ×2 (17:45→20:48)
[2018-11-03] MEDS: MELATONIN 5 MG TABLET PO SCH (20:48)
[2018-11-04] MEDS: IBUPROFEN 600 MG TAB PO PRN ×3 (00:40→16:18)
[2018-11-04] MEDS: LORazepam 0.5 MG TAB PO PRN ×3 (00:40→20:39)
[2018-11-04] MEDS: hydrOXYzine PAMOATE 25 MG CAP PO PRN ×2 (07:40→16:18)
[2018-11-04] MEDS: FAMOTIDINE 20 MG TAB PO SCH ×2 (08:40→20:39)
[2018-11-04] MEDS: NICOTINE 14MG/24HR PATCH TRANSDERM SCH (08:40)
[2018-11-04] MEDS: TOPIRAMATE 100 MG TAB PO SCH ×2 (08:40→20:39)
[2018-11-04] MEDS: LORATADINE 10 MG TAB PO SCH (08:40)
[2018-11-04] MEDS: LISINOPRIL 10 MG TAB PO SCH (08:40)
[2018-11-04] MEDS: PREGABALIN 100 MG CAP PO SCH ×3 (08:40→20:39)
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
[2018-11-04] MEDS: MELATONIN 5 MG TABLET PO SCH (20:39)
[2018-11-04] MEDS: ACETAMINOPHEN TAB 325 MG TAB PO PRN (20:39)
[2018-11-04] MEDS: ALBUTEROL INHALER 60 PUFF/8 GM INHALER INHALATION PRN (21:49)
[2018-11-05] MEDS: IBUPROFEN 600 MG TAB PO PRN ×3 (04:19→21:07)
[2018-11-05] MEDS: LORazepam 2 MG/ML INJ IM PRN (05:25)
[2018-11-05] MEDS: ZIPRASIDONE 20 MG VIAL IM PRN (05:25)
[2018-11-05] MEDS: ALBUTEROL INHALER 60 PUFF/8 GM INHALER INHALATION PRN ×2 (06:05→21:42)
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
[2018-11-05] MEDS: TOPIRAMATE 100 MG TAB PO SCH (09:48)
[2018-11-05] MEDS: FAMOTIDINE 20 MG TAB PO SCH ×2 (09:48→21:06)
[2018-11-05] MEDS: LORATADINE 10 MG TAB PO SCH (09:48)
[2018-11-05] MEDS: NICOTINE 14MG/24HR PATCH TRANSDERM SCH (09:48)
[2018-11-05] MEDS: LISINOPRIL 10 MG TAB PO SCH (09:48)
[2018-11-05] MEDS: PREGABALIN 100 MG CAP PO SCH ×3 (09:49→21:06)
[2018-11-05] MEDS: hydrOXYzine PAMOATE 25 MG CAP PO PRN ×3 (11:14→21:07)
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
[2018-11-05] MEDS: ACETAMINOPHEN TAB 325 MG TAB PO PRN (16:04)
[2018-11-05] MEDS: LORazepam 0.5 MG TAB PO SCH (21:06)
[2018-11-05] MEDS: MELATONIN 5 MG TABLET PO SCH (21:07)
[2018-11-05] MEDS: TOPIRAMATE 25 MG TAB PO SCH (21:07)
[2018-11-05] MEDS: DIVALPROEX ER 250 MG TAB.ER.24H PO SCH (21:41)
[2018-11-06] MEDS: ACETAMINOPHEN TAB 325 MG TAB PO PRN (01:15)
[2018-11-06] MEDS: NICOTINE 14MG/24HR PATCH TRANSDERM SCH (08:38)
[2018-11-06] MEDS: FAMOTIDINE 20 MG TAB PO SCH ×2 (08:39→20:30)
[2018-11-06] MEDS: LISINOPRIL 10 MG TAB PO SCH (08:39)
[2018-11-06] MEDS: PREGABALIN 100 MG CAP PO SCH ×3 (08:39→20:30)
[2018-11-06] MEDS: LORazepam 0.5 MG TAB PO SCH (08:39)
[2018-11-06] MEDS: LORATADINE 10 MG TAB PO SCH (08:39)
[2018-11-06] MEDS: TOPIRAMATE 25 MG TAB PO SCH (08:39)
[2018-11-06] MEDS: IBUPROFEN 600 MG TAB PO PRN ×2 (08:45→16:38)
[2018-11-06] MEDS: ALBUTEROL INHALER 60 PUFF/8 GM INHALER INHALATION PRN (08:50)
[2018-11-06] MEDS ORDERED: LORazepam 0.5 MG TAB PO PRN (10:58)
[2018-11-06] MEDS ORDERED: ONDANSETRON 4 MG TAB PO PRN (12:36)
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
[2018-11-06] MEDS: hydrOXYzine PAMOATE 25 MG CAP PO PRN ×2 (16:38→23:07)
[2018-11-06] MEDS: DIVALPROEX ER 250 MG TAB.ER.24H PO SCH (20:29)
[2018-11-06] MEDS: TOPIRAMATE 100 MG TAB PO SCH (20:30)
[2018-11-06] MEDS: MELATONIN 5 MG TABLET PO SCH (20:30)
[2018-11-07] MEDS: FAMOTIDINE 20 MG TAB PO SCH ×2 (08:42→20:18)
[2018-11-07] MEDS: NICOTINE 14MG/24HR PATCH TRANSDERM SCH (08:42)
[2018-11-07] MEDS: TOPIRAMATE 100 MG TAB PO SCH ×2 (08:43→20:18)
[2018-11-07] MEDS: PREGABALIN 100 MG CAP PO SCH ×3 (08:43→20:19)
[2018-11-07] MEDS: LISINOPRIL 10 MG TAB PO SCH (08:43)
[2018-11-07] MEDS: LORATADINE 10 MG TAB PO SCH (08:43)
[2018-11-07] MEDS: ACETAMINOPHEN TAB 325 MG TAB PO PRN ×2 (09:28→21:33)
[2018-11-07] MEDS: hydrOXYzine PAMOATE 25 MG CAP PO PRN ×2 (09:28→19:33)
[2018-11-07] MEDS: IBUPROFEN 600 MG TAB PO PRN ×2 (10:12→16:30)
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
[2018-11-07] MEDS: MELATONIN 5 MG TABLET PO SCH (20:19)
[2018-11-07] MEDS ORDERED: VALPROIC ACID ORAL SOLN 250 MG/5 ML CUP PO SCH (21:00)
[2018-11-08] MEDS: PREGABALIN 100 MG CAP PO SCH ×3 (08:29→20:22)
[2018-11-08] MEDS: NICOTINE 14MG/24HR PATCH TRANSDERM SCH (08:29)
[2018-11-08] MEDS: LISINOPRIL 10 MG TAB PO SCH (08:29)
[2018-11-08] MEDS: FAMOTIDINE 20 MG TAB PO SCH ×2 (08:30→20:22)
[2018-11-08] MEDS: LORATADINE 10 MG TAB PO SCH (08:30)
[2018-11-08] MEDS: TOPIRAMATE 100 MG TAB PO SCH ×2 (08:30→20:22)
[2018-11-08] MEDS: IBUPROFEN 600 MG TAB PO PRN ×2 (08:30→11:56)
[2018-11-08] MEDS ORDERED: VALPROIC ACID ORAL SOLN 250 MG/5 ML CUP PO SCH (09:00)
--- NOTE | 2018-11-08 11:57 | P.PN ---
Progress Note - Text Interval history: The patient is found in group she is interviewed in a conference room with female nursing present. The patient indicates that she's been very anxious. She states she's having nightmares. She feels that been difficult adjusting to the Depakote. Her Abilify is currently at 20 mg daily. She states that she can't stay here anymore and wants to be discharged. I attempted to review her psychotropic medications with her and answer questions. Mental status exam: The patient is alert initially she is irritable and make some derogatory statements. She was able to be redirected. She remained in her chair seated. Throughout the session she demonstrated lability of affect including significant tearfulness. She demonstrates impaired insight into the reason for this admission. She appears to be drawing illogical conclusions at times. She is reporting no suicidal or homicidal ideation. She is reporting no auditory or visual hallucinations. She reports no delusional thoughts. Fairly she continues to have symptoms of psychosis however. She demonstrated no physical aggressiveness. She demonstrates no involuntary repetitive movements. Impression/plan: Ongoing symptoms of tarsha with psychosis. I will titrate the Depakene liquid to 250 mg in the morning 500 mg at bedtime. We will follow for any medication side effect complaints. I will increase the Vistaril to 50 mg every 6 hours as needed for anxiety. Continue Abilify as written. She requires continued psychiatric hospitalization due to her acute symptoms. We will monitor her for safety.
[2018-11-08] MEDS: hydrOXYzine PAMOATE 25 MG CAP PO PRN ×2 (11:58→22:39)
[2018-11-08] MEDS: ACETAMINOPHEN TAB 325 MG TAB PO PRN (19:37)
[2018-11-08] MEDS: MELATONIN 5 MG TABLET PO SCH (20:22)
[2018-11-08] MEDS: VALPROIC ACID ORAL SOLN 250 MG/5 ML CUP PO SCH (20:22)
[2018-11-08] MEDS: MAG HYDROX/AL HYDROX/SIMETH 30 ML CUP PO PRN (22:41)
[2018-11-09] MEDS: IBUPROFEN 600 MG TAB PO PRN ×4 (00:53→20:59)
[2018-11-09] MEDS: hydrOXYzine PAMOATE 25 MG CAP PO PRN ×2 (06:31→20:59)
[2018-11-09] MEDS: VALPROIC ACID ORAL SOLN 250 MG/5 ML CUP PO SCH ×2 (08:44→20:57)
[2018-11-09] MEDS: LISINOPRIL 10 MG TAB PO SCH (08:44)
[2018-11-09] MEDS: FAMOTIDINE 20 MG TAB PO SCH ×2 (08:45→20:57)
[2018-11-09] MEDS: TOPIRAMATE 100 MG TAB PO SCH ×2 (08:45→20:57)
[2018-11-09] MEDS: LORATADINE 10 MG TAB PO SCH (08:45)
[2018-11-09] MEDS: PREGABALIN 100 MG CAP PO SCH ×3 (08:45→20:57)
[2018-11-09] MEDS: NICOTINE 14MG/24HR PATCH TRANSDERM SCH (08:45)
[2018-11-09] MEDS: ALBUTEROL INHALER 60 PUFF/8 GM INHALER INHALATION PRN (08:50)
[2018-11-09] MEDS: MAG HYDROX/AL HYDROX/SIMETH 30 ML CUP PO PRN (10:21)
[2018-11-09] MEDS: ACETAMINOPHEN TAB 325 MG TAB PO PRN (18:14)
--- NOTE | 2018-11-09 18:14 | P.PN ---
Progress Note - Text Interval history: The patient was found in the hallway he met in a conference room. Female nursing staff was present for the interaction. The patient states that her mood is okay she is frustrated with a male peer. She states that some of the disturbances on the unit are quite bothersome. Staff reported she slept 3 hours last night she states that she had an additional 2 hour nap. We discussed her current psychotropic medications her questions were answered. She feels that she is having some initial side effects to the Depakote but feels she can tolerate them. Mental status exam: The patient is alert she was much more cooperative. She seated calmly in the chair. She has spontaneous speech she is mildly pressured at times she is verbose. She demonstrated circumstantial thinking and tangential thinking still. She expresses feelings of frustration and anger but describes how she kept from acting on them. She reports no thoughts of harming herself or others. She endorses no hallucinations. Insight and judgment remain impaired. She demonstrates no verbal or physical aggressiveness. She demonstrates no involuntary repetitive movements. Plan: The patient will continue on the Abilify and Depakene as written. We does titrated the Depakene dose. She will need a Depakote level after he reaches steady state. Consider titrating Abilify further. We will monitor for safety and encourage appropriate participation in the milieu. Vital signs reviewed.
[2018-11-09] MEDS: MELATONIN 5 MG TABLET PO SCH (20:57)
[2018-11-10] MEDS: NICOTINE 14MG/24HR PATCH TRANSDERM SCH (07:54)
[2018-11-10] MEDS: VALPROIC ACID ORAL SOLN 250 MG/5 ML CUP PO SCH ×2 (07:55→21:21)
[2018-11-10] MEDS: PREGABALIN 100 MG CAP PO SCH ×3 (07:55→21:21)
[2018-11-10] MEDS: LORATADINE 10 MG TAB PO SCH (07:55)
[2018-11-10] MEDS: FAMOTIDINE 20 MG TAB PO SCH ×2 (07:55→21:21)
[2018-11-10] MEDS: LISINOPRIL 10 MG TAB PO SCH (07:55)
[2018-11-10] MEDS: TOPIRAMATE 100 MG TAB PO SCH ×2 (07:55→21:21)
[2018-11-10] MEDS: hydrOXYzine PAMOATE 25 MG CAP PO PRN (08:01)
[2018-11-10] MEDS: IBUPROFEN 600 MG TAB PO PRN ×2 (10:36→18:32)
--- NOTE | 2018-11-10 12:57 | P.PN ---
Progress Note - Text Progress Note Date: 11/10/18 Interval History: Patient was seen in the hallways wandering and speaking to another patient and was agreeable, directable to speak with the remote mortgage underwriter in the office. Patient was a little bit intrusive with remote mortgage underwriter and wanted to call remote mortgage underwriter by his first name however needed to be corrected. Patient was hyperverbal and tangential at times however is becoming more appropriate. Patient was less labile today. Patient spoke of her medications and need for compliance. She also spoke of being help to other patients over the weekend. She spoke of attending groups. Patient claims that she felt a little bit dizzy yesterday after she took the Depakote however is starting to improve now. She claims that she has less racing thoughts and feels calmer. She denies any depressed mood and denies any flight of ideas. Patient continues of poor judgment and insight and is preoccupied with discharge. Patient was agreeable to have her Abilify increased. At this time patient denies any suicidal or homical ideations, intent or plan. Patient denies any auditory, visual hallucinations and denies any paranoia or delusions. Patient has been compliant with meds. Mental Status Exam: General Appearance: Patient has poor grooming poor hygiene and is intrusive, however appears stated age. Behavior: No agitation however is intrusive. Speech: Patient's speech is fluent and hyperverbal, tangential Mood/Affect: Patient reports their mood is improving, affect is congruent and constricted. Suicidality/Homicidality: Patient denies having any suicidal or homicidal ideation intent or plan. Perceptions: Patient denies any auditory or visual hallucinations. Though content/process: [There is no evidence of any delusional thought content and thought process is tangential and loose at times. Memory and concentration: AOX3, grossly intact for the purposes of this session Judgment and insight: Improving Assessment Bipolar disorder type I, tarsha Plan: -Patient continues to meet criteria for inpatient psychiatric admission for symptom stabilization and safety. Patient currently has a court order and is being compliant with medications and cuevas protocol. -Medications: Increase Abilify to 25 mg daily for mood stabilization/psychosis. Will keep Depakene that same dose and check level. -When necessary Ativan for agitation/aggression. -SW on board for discharge planning. Once patient is appropriately stabilized on medications and has a proper discharge plan, we'll then arrange for discharge .
[2018-11-10] MEDS: ACETAMINOPHEN TAB 325 MG TAB PO PRN ×2 (13:44→21:49)
[2018-11-10] MEDS: MELATONIN 5 MG TABLET PO SCH (21:21)
[2018-11-11] MEDS: hydrOXYzine PAMOATE 25 MG CAP PO PRN (05:31)
[2018-11-11 06:58] VITALS: RESP 16
[2018-11-11] MEDS: ARIPiprazole 10 MG TAB PO SCH (08:24)
[2018-11-11] MEDS: LISINOPRIL 10 MG TAB PO SCH (08:25)
[2018-11-11] MEDS: FAMOTIDINE 20 MG TAB PO SCH ×2 (08:25→21:19)
[2018-11-11] MEDS: PREGABALIN 100 MG CAP PO SCH ×3 (08:25→21:20)
[2018-11-11] MEDS: TOPIRAMATE 100 MG TAB PO SCH ×2 (08:25→21:19)
[2018-11-11] MEDS: NICOTINE 14MG/24HR PATCH TRANSDERM SCH (08:25)
[2018-11-11] MEDS: VALPROIC ACID ORAL SOLN 250 MG/5 ML CUP PO SCH ×2 (08:25→21:19)
[2018-11-11] MEDS: LORATADINE 10 MG TAB PO SCH (08:25)
[2018-11-11] MEDS: IBUPROFEN 600 MG TAB PO PRN (10:00)
--- NOTE | 2018-11-11 10:08 | P.PN ---
Progress Note - Text Progress Note Date: 11/11/18 Interval History: Patient was seen in the hallways and was agreeable to speak with literary writer. Pau ent was directable, however continues to be somewhat labile during interview. Patient also was preoccupied with what she feels is an ALLERGIC reaction to the Tide soap that is being used on the unit. Patient states that she has deep skin lesions and pain in her foot which she attributes to soap. Upon visual examination, no pruritus, erythema or swelling appears to be noted. Patient almost being crying when thinking about her cats and not having a place to go when she leaves here. Patient claims that her mood is more stable and states that she is attempting to get along with others on the unit. Patient claims that she is learning coping skills in group including relaxation and breathing techniques. Patient states that her thoughts are calmer and that she slept better last night approximately 6 hours.. At this time patient denies any suicidal or homical ideations, intent or plan. Patient denies any auditory, visual hallucinations and denies any paranoia or delusions. Patient denies any side effects from the medications and has been compliant with meds. Mental Status Exam: General Appearance: [Patient appears to be stated age is alert, pleasant, and cooperative.] Patient is in the hospital gown and has marginal hygiene and grooming. Behavior: Patient is labile at times however for the most part appropriate. Speech: Patient's speech is fluent and hyperverbal at times. Mood/Affect: Patient reports their mood is improving, affect is congruent and labile Suicidality/Homicidality: Patient denies having any suicidal or homicidal ideation intent or plan. Perceptions: Patient denies any auditory or visual hallucinations. Though content/process: [There is no evidence of any delusional thought content and thought process is linear and goal-directed.] Somatically preoccupied Memory and concentration: AOX3, grossly intact for the purposes of this session Judgment and insight: Improving Assessment Bipolar disorder type I, currently in a manic episode. Plan: -Patient continues to meet criteria for inpatient psychiatric admission for symptom stabilization and safety. Patient currently has a court order and is being compliant with medications and cuevas protocol. -Medications: We'll continue Abilify 25 mg daily for mood stabilization/psychosis. Will increase Depakene to 500 mg twice a day for mood stabilization. Patient is agreeable to taking long-acting Abilify maintaina prior to discharge. -Valproic acid level came back yesterday at 39.1. Will continue to monitor -When necessary Ativan for agitation/aggression. -SW on board for discharge planning. Once patient is appropriately stabilized on medications and has proper discharge planning, will arrange for discharge.
[2018-11-11] MEDS: ACETAMINOPHEN TAB 325 MG TAB PO PRN (15:27)
[2018-11-11] MEDS: MELATONIN 5 MG TABLET PO SCH (21:19)
[2018-11-12] MEDS: hydrOXYzine PAMOATE 25 MG CAP PO PRN ×3 (03:03→21:41)
[2018-11-12] MEDS: ALBUTEROL INHALER 60 PUFF/8 GM INHALER INHALATION PRN ×2 (07:29→21:40)
[2018-11-12] MEDS: ARIPiprazole 10 MG TAB PO SCH (07:47)
[2018-11-12] MEDS: FAMOTIDINE 20 MG TAB PO SCH ×2 (07:47→20:44)
[2018-11-12] MEDS: NICOTINE 14MG/24HR PATCH TRANSDERM SCH (07:47)
[2018-11-12] MEDS: LORATADINE 10 MG TAB PO SCH (07:47)
[2018-11-12] MEDS: TOPIRAMATE 100 MG TAB PO SCH ×2 (07:48→20:44)
[2018-11-12] MEDS: PREGABALIN 100 MG CAP PO SCH ×3 (07:48→20:44)
[2018-11-12] MEDS: VALPROIC ACID ORAL SOLN 250 MG/5 ML CUP PO SCH ×2 (07:48→20:44)
[2018-11-12] MEDS: LISINOPRIL 10 MG TAB PO SCH (07:48)
[2018-11-12] MEDS: IBUPROFEN 600 MG TAB PO PRN (09:29)
[2018-11-12 11:57] VITALS: BMI 27.6
[2018-11-12] MEDS ORDERED: ARIPiprazole IM SYRINGE 400 MG (NO CHARGE) IM ONE (13:30)
--- NOTE | 2018-11-12 13:45 | P.PN ---
Progress Note - Text Progress Note Date: 11/12/18 Interval History: Patient was seen in the hallways and was agreeable to speak to inspector automatic typewriter in the of itzel. Patient was calm and directable during interview and appeared to be polite her today than usual. Patient states that she was excited this morning as she heard back from one of the apartment complex is that she was attempting contact. She states that they have several openings that are within her [place] range and she is excited to see them upon discharge. Patient states that she feels her medications are really helping her her mood and helping her stay calm. She states that the Depakote no longer makes her feel "woozy". She states that she has been going to groups and participating and trying to stay out of trouble on the unit. Patient has more insight and it appears to be less labile than this morning. Patient's judgment and insight are improving. At this time patient denies any suicidal or homical ideations, intent or plan. Patient denies any auditory, visual hallucinations and denies any paranoia or delusions. Patient denies any side effects from the medications and has been compliant with meds. Mental Status Exam: General Appearance: [Patient appears to be stated age is alert, pleasant, and cooperative.] Patient is in the hospital gown and has marginal hygiene and grooming. Behavior: Patient is labile at times however for the most part appropriate. Speech: Patient's speech is fluent and hyperverbal at times. Mood/Affect: Patient reports their mood is improving, affect is congruent and labile Suicidality/Homicidality: Patient denies having any suicidal or homicidal ideation intent or plan. Perceptions: Patient denies any auditory or visual hallucinations. Though content/process: [There is no evidence of any delusional thought content and thought process is linear and goal-directed.] Memory and concentration: AOX3, grossly intact for the purposes of this session Judgment and insight: Improving Assessment Bipolar disorder type I, currently in a manic episode. Plan: -Patient continues to meet criteria for inpatient psychiatric admission for s ymptom stabilization and safety. Patient currently has a court order and is being compliant with medications and cuevas protocol. -Medications: Continue with Abilify 25 mg daily for mood stabilization/ psychosis. Will increase Depakene to 500 mg twice a day for mood stabilization. Patient is agreeable to take the long-acting Abilify today and was informed that she needs to stay on the oral Abilify for 2 weeks. Patient verbally understood and agreed. Order placed for 400 mg Abilify maintaina IM. -Will check valproic acid level tomorrow morning prior to discharge. -When necessary Ativan for agitation/aggression. -SW on board for discharge planning. Patient appears to have made progress in finding a apartment and outpatient follow-up. She is aware that she is getting evicted from the old house and needs to gather her belongings. She states that her new apartment will be in [place]. Likely discharge tomorrow.
[2018-11-12] MEDS: ACETAMINOPHEN TAB 325 MG TAB PO PRN (14:09)
[2018-11-12] MEDS: MELATONIN 5 MG TABLET PO SCH (20:44)
[2018-11-13 05:36] VITALS: BP 131/77; PULSE 80; TEMP 98.1
[2018-11-13] MEDS: ARIPiprazole 10 MG TAB PO SCH (08:54)
[2018-11-13] MEDS: NICOTINE 14MG/24HR PATCH TRANSDERM SCH (08:54)
[2018-11-13] MEDS: LISINOPRIL 10 MG TAB PO SCH (08:54)
[2018-11-13] MEDS: LORATADINE 10 MG TAB PO SCH (08:54)
[2018-11-13] MEDS: FAMOTIDINE 20 MG TAB PO SCH (08:54)
[2018-11-13] MEDS: PREGABALIN 100 MG CAP PO SCH (08:55)
[2018-11-13] MEDS: TOPIRAMATE 100 MG TAB PO SCH (08:55)
[2018-11-13] MEDS: VALPROIC ACID ORAL SOLN 250 MG/5 ML CUP PO SCH (09:03)
--- NOTE | 2018-11-13 09:26 | P.DS ---
Providers Date of admission: 10/18/18 16:44 Expected date of discharge: 11/13/18 Attending physician: Naeem Moseley MD Consults: 10/18/18 17:05 Consult Physician Routine Consulting Provider: Inderjit Garcia Consult Reason/Comments: medical management Do you want consulting provider notified?: Already Contacted 10/22/18 13:59 Consult Physician Routine Consulting Provider: Ayah Shukla Consult Reason/Comments: abd pain-left ovary 4.5cm/cyst Do you want consulting provider notified?: Yes Primary care physician: Inderjit Garcia MD - Discharge Diagnosis(es) (1) Bipolar affective, manic, severe Current Visit: Yes Status: Acute Priority: High (2) Cannabis abuse Current Visit: Yes Status: Acute Priority: Medium Hospital Course: Admission note: Patient is a 38-year-old female who was admitted to the mental health unit through the emergency room on a petition and clinical certificate. The patient presents with a petition completed by a social secretary through [facility]. It states "reports people are breaking into her home raping, poisoning, trying to kill her animals. States she had to release her dog and having run away so they did not kill it. She reports neighbors are watching and letting these individuals into the home. Previously stated neighbor father daughter were part of it states if they come to her home she will hang them. No insight, delusional thinking. Has been calling the police to have her home inspected for trap doors and believes one of them is trapped in their, previously stated closet today states in attic." She sat for the interview for approximately 2 minutes before escalating to the point where the interview had to be terminated. She had become very loud threatening and demanding. She did spontaneously describe some of the information noted in the petition. She states she feels that she is in danger. She was observed walking up and down the hallway yelling and threatening physical violence towards others. The patient did require an injection of Geodon and Ativan in the emergency room yesterday prior to her admission on this unit. She did receive Ativan last evening. Due to the acute nature of her psychosis and agitation she is now receiving Geodon and Ativan intramuscularly again. Hospital course: Upon admission to the unit patient was initially bizarre, intrusive and had multiple symptoms of tarsha and psychosis. Patient required multiple prns for aggression and agitation along with seclusion. Patient gradually progressed throughout hospital course with mood stabilizers and antipsychotic medications. Patient was compliant with his medications and denied any side effects throughout his hospital course. Patient was started on Abilify by mouth and titrated up to 25 mg daily for mood stabilization/psychosis. Patient received Abilify maintenna 400 mg IM given on 11/12/2018, and tolerated injection well with no reactions. Patient was also started on Depakene and titrated up to 500 mg twice a day for mood stabilization. Patient did receive a court order on October 31 for 60 days inpatient/180 days outpatient treatment which lasts until April 29 2019. Patient understands this court order and claims that she will comply with it and her appointments. Patient spoke of her stressors and engaged in therapy both group and individual. Patient got along well with other patients on the unit and followed unit protocol. Patient was also seen by medical team for history and physical exam. [] Throughout the course of the hospitalization patient gradually improved with regards to mood and became future oriented. On day of discharge patient had Depakote level drawn which was 53.2. On the day of discharge patient denied any suicidal or homicidal ideations intent or plan denied any auditory or visual hallucinations. Patient denied any paranoia and did not endorse any delusions. Patient's insight and judgment had improved dramatically and patient was able to arrange a more stable place to live and claims that she would return home to clear out her things from her old house to move into her new apartment. Patient acknowledged and agreed to follow-up with a court ordered treatment. Patient does have a positive history for substance use for marijuana and was counseled on the importance to abstain from it and the interactions and negative effects it would have on her mental and physical health, patient verbally understood and agreed. Patient was also counseled on the medications and need for regular compliance and was encouraged to follow-up with their outpatient appointment for mental health and also for primary care.] Mental status exam: General Appearance: [Patient appears to be stated age is alert, pleasant, and cooperative. Patient is in no acute distress and has fair hygiene and grooming] Behavior: [Patient is calmly seated without any agitated behavior.] Speech: Patient's speech is fluent and nonpressured. Mood/Affect: Patient reports their mood is fine, affect is congruent and euthymic. Suicidality/Homicidality: Patient denies having any suicidal or homicidal ideation intent or plan. Perceptions: Patient denies any auditory or visual hallucinations. Though content/process: There is no evidence of any delusional thought content and thought process is linear and goal-directed. Memory and concentration: AOX3, grossly intact for the purposes of this session. Can spell "WORLD" backwards correctly. Judgment and insight: fair Impression: bipolar disorder, type I, manic episode with psychotic features. Cannabis use disorder Plan: -Continue with discharge today as patient has improved and stabilized psychiatrically and no longer remains an imminent threat to self and/or others. -Continue medications: Abilify by mouth 25 mg daily for mood stabilization/psychosis for 14 days then patient was asked to discontinue. Patient received Abilify Maintenna IM 400 mg on 11/12/2018 and tolerated it well. Patient will continue for next injection on December 10 2018. Continue with Depakote 500 mg by mouth twice a day for mood stabilization. Patient will also continue with hydroxyzine 50 mg daily when necessary for anxiety. Continue with melatonin 5 mg daily at bedtime for sleep. -Patient was advised to speak with her primary care provider with regards to her pregabalin and topiramate dosing in the future. -Depakote level on day of discharge was 53.2. -Patient was court ordered on 10/31/2018 for treatment involving 60 days inpatient/180 days outpatient. Set to end 04/29/2019 -Patient was counseled on the need for medication compliance and appropriate follow-up at mental health and also primary care for medical issues. Patient verbalized understanding and agreed. -Social work to give patient resources for substance use treatment and for assistance with housing. yarn worker sat with patient while she set up her new apartment visit. Patient plans to go from hospital to her old house to collect her items and will stay with a friend after that. -Patient counseled on abstaining from recreational drugs and marijuana and alcohol. -Patient was instructed to return to the hospital or seek immediate medical care if their psychiatric or medical systems do worsen or reoccur. Allergies Allergy/AdvReac Type Severity Reaction Status Date / Time No Known Allergies Allergy Verified 10/18/18 17:05 Laboratory Results WBC 9.0 k/uL (3.8-10.6) 10/23/18 07:12 RBC 4.33 m/uL (3.80-5.40) 10/23/18 07:12 Hgb 14.1 gm/dL (11.4-16.0) 10/23/18 07:12 Hct 43.5 % (34.0-46.0) 10/23/18 07:12 MCV 100.4 fL (80.0-100.0) H 10/23/18 07:12 MCH 32.6 pg (25.0-35.0) 10/23/18 07:12 MCHC 32.5 g/dL (31.0-37.0) 10/23/18 07:12 RDW 13.3 % (11.5-15.5) 10/23/18 07:12 Plt Count 343 k/uL (150-450) 10/23/18 07:12 Neutrophils % 47 % 10/23/18 07:12 Lymphocytes % 39 % 10/23/18 07:12 Monocytes % 8 % 10/23/18 07:12 Eosinophils % 2 % 10/23/18 07:12 Basophils % 1 % 10/23/18 07:12 Neutrophils # 4.2 k/uL (1.3-7.7) 10/23/18 07:12 Lymphocytes # 3.5 k/uL (1.0-4.8) 10/23/18 07:12 Monocytes # 0.7 k/uL (0-1.0) 10/23/18 07:12 Eosinophils # 0.2 k/uL (0-0.7) 10/23/18 07:12 Basophils # 0.1 k/uL (0-0.2) 10/23/18 07:12 Sodium 140 mmol/L (137-145) 10/23/18 07:12 Potassium 3.5 mmol/L (3.5-5.1) 10/23/18 07:12 Chloride 105 mmol/L (98-107) 10/23/18 07:12 Carbon Dioxide 25 mmol/L (22-30) 10/23/18 07:12 Anion Gap 10 mmol/L 10/23/18 07:12 BUN 12 mg/dL (7-17) 10/23/18 07:12 Creatinine 0.59 mg/dL (0.52-1.04) 10/23/18 07:12 Est GFR (CKD-EPI)AfAm >90 (>60 ml/min/1.73 sqM) 10/23/18 07:12 Est GFR (CKD-EPI)NonAf >90 (>60 ml/min/1.73 sqM) 10/23/18 07:12 Glucose 100 mg/dL (74-99) H 10/23/18 07:[address] Glu mg/dL 100 10/19/18 08:09 Hemoglobin A1c 5.1 % (4.0-6.0) 10/19/18 08:09 Calcium 9.8 mg/dL (8.4-10.2) 10/23/18 07:12 Ionized Calcium Agueda 5.5 mg/dL (4.5-5.3) H 10/23/18 07:12 Magnesium 2.1 mg/dL (1.6-2.3) 10/22/18 11:32 Total Bilirubin 0.5 mg/dL (0.2-1.3) 10/22/18 03:00 AST 30 U/L (14-36) 10/22/18 03:00 ALT 16 U/L (9-52) 10/22/18 03:00 Alkaline Phosphatase 86 U/L (38-126) 10/22/18 03:00 Total Protein 8.1 g/dL (6.3-8.2) 10/22/18 03:00 Albumin 4.9 g/dL (3.5-5.0) 10/22/18 03:00 Triglycerides 175 mg/dL (<150) H 10/19/18 08:09 Cholesterol 292 mg/dL (<200) H 10/19/18 08:09 LDL Cholesterol, Calc 224 mg/dL (0-99) H 10/19/18 08:09 HDL Cholesterol 33 mg/dL (40-60) L 10/19/18 08:09 Amylase 48 U/L (30-110) 10/22/18 03:00 Lipase 27 U/L (23-300) 10/22/18 03:00 TSH 3.060 mIU/L (0.465-4.680) 10/19/18 08:09 Urine Color Light Yellow 10/26/18 12:00 Urine Appearance Clear (Clear) 10/26/18 12:00 Urine pH 7.5 (5.0-8.0) 10/26/18 12:00 Ur Specific Ten[place] 1.006 (1.001-1.035) 10/26/18 12:00 Urine Protein Negative (Negative) 10/26/18 12:00 Urine Glucose (UA) Negative (Negative) 10/26/18 12:00 Urine Ketones Negative (Negative) 10/26/18 12:00 Urine Blood Negative (Negative) 10/26/18 12:00 Urine Nitrite Negative (Negative) 10/26/18 12:00 Urine Bilirubin Negative (Negative) 10/26/18 12:00 Urine Urobilinogen <2.0 mg/dL (<2.0) 10/26/18 12:00 Ur Leukocyte Esterase Moderate (Negative) H 10/26/18 12:00 Urine RBC 1 /hpf (0-5) 10/26/18 12:00 Urine WBC 10 /hpf (0-5) H 10/26/18 12:00 Ur Squamous Epith Cells 3 /hpf (0-4) 10/26/18 12:00 Urine Bacteria Rare /hpf (None) H 10/26/18 12:00 Urine HCG, Qual Not Detected (Not Detectd) 10/26/18 12:00 Blood Opiate Screen Negative 10/19/18 08:09 Urine Opiates Screen Negative ng/mL (Negative) 10/26/18 12:00 Blood Methadone Screen Negative 10/19/18 08:09 Urine Methadone Screen Negative ng/mL (Negative) 10/26/18 12:00 Bld Propoxyphene Scrn Negative 10/19/18 08:09 Ur Propoxyphene Screen Negative ng/mL (Negative) 10/26/18 12:00 Bld Barbiturates Scrn Negative 10/19/18 08:09 Urine Barbiturates Negative ng/mL (Negative) 10/26/18 12:00 Valproic Acid 53.2 ug/mL 11/13/18 09:01 Bld Phencyclidine Scrn Negative 10/19/18 08:09 Ur Phencyclidine Scrn Negative ng/mL (Negative) 10/26/18 12:00 Bld Amphetamines Scrn Negative 10/19/18 08:09 Ur Amphetamine Screen Negative ng/mL (Negative) 10/26/18 12:00 Bl Benzodiazepine Scrn Negative 10/19/18 08:09 U Benzodiazepines Scrn Negative ng/mL (Negative) 10/26/18 12:00 Bld Cocaine/Metab Scrn Negative 10/19/18 08:09 Urine Cocaine Screen Negative ng/mL (Negative) 10/26/18 12:00 Bld Cannabinoid Screen Positive 10/19/18 08:09 U Cannabinoids Screen Positive ng/mL (Negative) H 10/26/18 12:00 Urine Alcohol Negative mg/dL (Negative) 10/26/18 12:00 Plasma/Serum Ethyl Alc Negative 10/19/18 08:09 Vital Signs Temp 98.1 F 11/13/18 05:35 Pulse 80 11/13/18 05:35 Resp 16 11/13/18 05:35 BP 131/77 11/13/18 05:35 Pulse Ox 96 10/18/18 22:00 Intake & Output 11/12/18 11/13/18 11/13/18 18:59 06:59 18:59 Weight 66.3 kg Patient Condition at Discharge: Stable Plan - Discharge Summary New Discharge Prescriptions: New ARIPiprazole [Abilify] 20 mg PO DAILY #14 tablet ARIPiprazole [Abilify] 5 mg PO DAILY #14 tab Loratadine [Claritin] 10 mg PO DAILY tab Docusate [Colace] 100 mg PO DAILY PRN cap PRN Reason: Constipation Divalproex [Depakote] 500 mg PO BID #60 tablet. Pregabalin [Lyrica] 100 mg PO TID cap Melatonin 5 mg PO HS #30 tablet Famotidine [Pepcid] 20 mg PO BID tab Topiramate [Topamax] 100 mg PO BID tab Albuterol Inhaler [Ventolin Hfa Inhaler] 1 puff INHALATION RT-QID PRN puff PRN Reason: Shortness Of Breath Or Wheezing Lisinopril [Zestril] 10 mg PO DAILY tab Continue Fluticasone/Vilanterol [Breo Ellipta 100-25 Mcg Inhaler] 1 puff PO DAILY Ranitidine HCl [Zantac] 150 mg PO BID Changed hydrOXYzine HCL 50 mg PO HS PRN #30 tablet PRN Reason: Anxiety Discontinued DULoxetine HCL [Cymbalta] 120 mg PO DAILY Topiramate [Topamax] 100 mg PO BID Loratadine 10 mg PO DAILY Pregabalin [Lyrica] 150 mg PO TID Ibuprofen [Motrin] 600 mg PO TID PRN PRN Reason: Pain Discharge Medication List Fluticasone/Vilanterol [Breo Ellipta 100-25 Mcg Inhaler] 1 puff PO DAILY 10/18/18 [History] Ranitidine HCl [Zantac] 150 mg PO BID 10/18/18 [History] ARIPiprazole [Abilify] 5 mg PO DAILY #14 tab 11/13/18 [Rx] ARIPiprazole [Abilify] 20 mg PO DAILY #14 tablet 11/13/18 [Rx] Albuterol Inhaler [Ventolin Hfa Inhaler] 1 puff INHALATION RT-QID PRN puff 11/13/18 [Rx] Divalproex [Depakote] 500 mg PO BID #60 tablet. 11/13/18 [Rx] Docusate [Colace] 100 mg PO DAILY PRN cap 11/13/18 [Rx] Famotidine [Pepcid] 20 mg PO BID tab 11/13/18 [Rx] Lisinopril [Zestril] 10 mg PO DAILY tab 11/13/18 [Rx] Loratadine [Claritin] 10 mg PO DAILY tab 11/13/18 [Rx] Melatonin 5 mg PO HS #30 tablet 11/13/18 [Rx] Pregabalin [Lyrica] 100 mg PO TID cap 11/13/18 [Rx] Topiramate [Topamax] 100 mg PO BID tab 11/13/18 [Rx] hydrOXYzine HCL 50 mg PO HS PRN #30 tablet 11/13/18 [Rx] Follow up Appointment(s)/Referral(s): [facility] [Outside] - 1 Week Apolinar Aviles DO [STAFF PHYSICIAN] - 1-2 days Patient Instructions/Handouts: Bipolar Disorder (DC), Cannabis Abuse (DC), Mari cide Prevention (DC) Activity/Diet/Wound Care/Special Instructions: Keep your follow up appointments as scheduled. Continue medications as prescribed. No alcohol or street drugs not prescribed by your physician. When you need refill of your medications contact your out patient psychiatrist or primary care physician. No access to guns or weapons. Crisis line if needed . Follow up with primary regarding high blood pressure, 2 days Discharge Disposition: HOME SELF-CARE
[2018-11-13] MEDS: IBUPROFEN 600 MG TAB PO PRN (10:00)
[2018-11-13] MEDS: hydrOXYzine PAMOATE 25 MG CAP PO PRN (10:00)
[2018-11-13] MEDS ORDERED: DIVALPROEX 500 MG TABLET.DR PO SCH (21:00)
== END 2018-11-13 12:08 | disposition home or self-care (01) | DRG 885 ==
LOC: EC 15:03 → 3MHU 16:44
PROVIDERS: ADMIT Psychiatry & Neurology Psychiatry; ATTEND Psychiatry & Neurology Psychiatry
DX: F31.2 Bipolar disorder, current episode manic severe with psychotic features (principal); M79.7 Fibromyalgia; G89.4 Chronic pain syndrome; N83.202 Unspecified ovarian cyst, left side; K59.00 Constipation, unspecified; K21.9 Gastro-esophageal reflux disease without esophagitis; G43.909 Migraine, unspecified, not intractable, without status migrainosus; R03.0 Elevated blood-pressure reading, without diagnosis of hypertension; M79.673 Pain in unspecified foot; F41.9 Anxiety disorder, unspecified; J44.9 Chronic obstructive pulmonary disease, unspecified; M54.9 Dorsalgia, unspecified; R11.2 Nausea with vomiting, unspecified; J30.2 Other seasonal allergic rhinitis; Q07.00 Arnold-Chiari syndrome without spina bifida or hydrocephalus; F12.10 Cannabis abuse, uncomplicated; F17.210 Nicotine dependence, cigarettes, uncomplicated; Z71.6 Tobacco abuse counseling; Z78.1 Physical restraint status; Z91.5 Personal history of self-harm; Z79.51 Long term (current) use of inhaled steroids; Z79.899 Other long term (current) drug therapy; Z85.3 Personal history of malignant neoplasm of breast; Z90.13 Acquired absence of bilateral breasts and nipples; Z91.410 Personal history of adult physical and sexual abuse
CPT/HCPCS: 74176; 80048; 80053; 80061; 80164; 80306; 80307; 81001; 81025; 82075; 82150; 82330; 83036; 83690; 83735; 84443; 85025; 96372; 99285